=== PATIENT | male | born 1965 | race Native Hawaiian/Other Pacific Islander ===

== ENCOUNTER 2022-05-28 07:40 | Day surgery (SDC) | payer OTHER ==
[~2022-05-28] VITALS: Ht 162.6 cm; Wt 99.1 kg
[~2022-05-28 07:40] MED LIST: AMOXICILLIN500 MG PO; BAYER CHEWABLE81 MG PO; CLONIDINE HCL0.3 MG PO; FENOFIBRATE134 MG PO
--- NOTE | 2022-05-28 10:10 | NUR ---
05/28/22 1010 Dominique Wong 1004: PT ARRIVES TO PACU WITH EYES CLOSED, RESP EVEN AND UNLABORED ON 6 L VIA MASK. PT DOES NOT AROUSE WITH VERBAL OR TACTICE STIMULATION. JUS DIALLO SECOND.
--- NOTE | 2022-05-28 11:08 | NUR ---
1045: PT RETURNS TO UNIT VIA STRETCHER FROM PACU. DROWSY ON ARRIVAL BUT WAKES TO VERBAL STIM AND FOLLOWS COMMANDS. DENIES PAIN AND NAUSEA. VSS, RESP EVEN AND UNLABORED. DRESSING C/D/I. WATER AND CRACKERS PROVIDED. POC DISCUSSED WITH PT AND PT'S FAMILY. NO NEEDS VOICED AT THIS TIME. CALL LIGHT WITHIN REACH
--- NOTE | 2022-05-28 11:21 | NUR ---
1115: CHECKED PATIENT. PATIENT SLEEPING CURRENTLY. DID EAT CRACKERS AND DRINK SOME WATER. NO OTHER NEEDS AT THIS TIME. DAUGHTER AT BEDSIDE. CALL LIGHT WITHIN REACH.
--- NOTE | 2022-05-28 11:56 | NUR ---
1145: PATIENT GOT UP OOB INDEPENDENTLY. GAIT STEADY. WALKING IN HALLWAY WITH DAUGHTER.
--- NOTE | 2022-05-28 12:02 | OR ---
[facility] [address] [place], [place] [address] Signed DATE OF OPERATION: 05/28/2022 SURGEON: Nicci Jones MD PREOPERATIVE DIAGNOSIS: Epidermal inclusion cyst, midback (3-4 cm). POSTOPERATIVE DIAGNOSIS: Epidermal inclusion cyst, midback (3-4 cm). PROCEDURE: Excision of epidermal inclusion cyst, midback. ESTIMATED BLOOD LOSS: None. INDICATIONS: Laura is a 57-year-old gentleman from [facility]. 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 He has been over in the [facility] visiting family. He thinks 10 years ago or maybe more, he developed a small inclusion cyst between his shoulder blades right over the spine. It has continued to increase in size. To his knowledge, it has never been infected. He tells me it drains once in a while. There is only one surgeon in [facility]. The surgeon is very busy and has to deal with more life-threatening issues. Therefore, Laura has been unable to schedule surgery in [facility]. He came to the [facility]gent [facility] at [facility] here in [place], [place]. An ultrasound confirmed the lesion. He was asked to see me as a local general surgeon. His son came with him to the office to help interpret; I explained to Laura this clinically appears to be an epidermal inclusion cyst. It is actually quite large 3 if not 4 cm. The surrounding tissue is also quite indurated. It would be quite to try this in the office. Even today it was difficult in the OR. He understands we have to excise the entire cyst and cyst wall. Otherwise, they come back. There is risk to that surgery including, but not limited to bleeding, infection, scarring, change in contour of the skin as well as recurrent cyst in the same or other locations. He had expressed understanding and wished to proceed. DESCRIPTION OF PROCEDURE: I met with Laura and his and daughter in our preop area. We were able to identify and murphy the lesion quite readily. After this, Laura was taken into our operating room and placed in the left lateral decubitus position under general LMA anesthesia with appropriate padding and monitoring. He was given preoperative Electronically Signed By: NICCI JONES MD 05/28/22 1202 PATIENT NAME: LAURA RAMIREZ OPERATIVE REPORT DATE OF : 61 REPORT #: [id number] PHYSICIAN: NICCI JONES MD PCP: NO PRIMARY CARE PHYSICIAN REPORT IS CONFIDENTIAL AND NOT TO BE RELEASED WITHOUT AUTHORIZATION [facility] [address] [place], [place] [address] Signed antibiotics along with subcutaneous heparin. SCDs were utilized. He was then prepped and draped in the usual sterile fashion. A vertical incision was made over the lesion and carried down around the lesion very slowly and carefully with the help of the cautery. It was unbelievably chronically inflamed and indurated. Several areas of bleeding had to be controlled with the cautery. Eventually, the entire lesion was removed. The cyst wall itself was probably 3 cm but with the indurated tissue it is closer to 4 cm. The wound was irrigated and suctioned out until clear. Local anesthetic was copiously injected into his wound. We closed the dermis with interrupted 3-0 subcuticular Monocryl sutures. The skin edges were reapproximated with a running 5-0 fast absorbing plain gut suture. Dry gauze and tape were then applied. Laura was then rotated into the supine position onto his hospital bed and taken into recovery room in stable condition. Nicci Jones MD ALB/MODL /[id number] cc: Nicci Jones MD [address] [facility] Copies: NICCI JONES MD ~ Electronically Signed By: NICCI JONES MD 05/28/22 1202 PATIENT NAME: LAURA RAMIREZ OPERATIVE REPORT DATE OF : 61 REPORT #: [id number] PHYSICIAN: NICCI JONES MD PCP: NO PRIMARY CARE PHYSICIAN REPORT IS CONFIDENTIAL AND NOT TO BE RELEASED WITHOUT AUTHORIZATION
--- NOTE | 2022-05-28 13:03 | NUR ---
1200: PATIENT DRESSED WITH HELP FROM FAMILY. VS CHECKED. BACK DRESSING CDI. IV SITE WNL. DISCHARGE INSTRUCTIONS GIVEN TO PATIENT AND FAMILY. 1215: IV DC'D WNL. TIP INTACT. DRESSING APPLIED. PATIENT DISCHARGED TO HOME VIA WHEELCHAIR WITH FAMILY.
--- NOTE | 2022-05-29 13:19 | PATH ---
[facility] [address] [facility] [place], [place] [address] Signed SPECIMEN(S): A MID BACK CYST SPECIMEN SOURCE: A. MID BACK CYST CLINICAL HISTORY: Epidermal inclusion cyst excision. FINAL PATHOLOGIC DIAGNOSIS: Designated "epidermoid inclusion cyst, mid back, excision: - Epidermoid inclusion cyst with evidence of prior rupture. NAL:cml:C2NR MICROSCOPIC EXAMINATION: Histologic sections of all submitted blocks are examined by light microscopy. These findings, together with the gross examination, support the pathologic diagnosis. Sections demonstrate fragments of an epidermoid inclusion cyst and surrounding fibroadipose tissue with granulation tissue formation, exuberant acute and chronic inflammation, foreign body type giant cell reaction, and flecks of keratin. These findings are compatible with prior rupture of the epidermoid inclusion cyst. NAL:cml GROSS DESCRIPTION: The specimen, labeled "AT, A," and designated on the requisition "mid back epidermal inclusion cyst," is received in formalin and consists of a disrupted cyst with yellow to red-brown soft tissue (5.3 x 4.0 x 3.0 cm). The specimen is inked blue and serially sectioned to reveal a brown-scanlon, friable material within the cyst, and yellow-scanlon to hemorrhagic cut surface the soft tissue. Tray Line Worker sections are submitted in cassettes (A1-A2). AC (under the direct supervision of a pathologist) The Gross Description was prepared using a voice recognition system. The report was reviewed for accuracy; however, sound-alike word errors, addition and/or deletions may occur. If there is any question about this report, please contact Client Services. PERFORMING LABORATORY: The technical component was performed by [facility], [address] [place] [id number] (CLIA# [id number]). Professional interpretation was PATIENT NAME: GENET RAMIREZ PATHOLOGY DATE OF : 61 REPORT #: [id number] PHYSICIAN: ARMEN PATHOLOGY PCP: NO PRIMARY CARE PHYSICIAN REPORT IS CONFIDENTIAL AND NOT TO BE RELEASED WITHOUT AUTHORIZATION [facility] [address] [place], [place] [address] Signed performed by [employer] [facility], [address] [address] (CLIA# [id number]). Diagnostician: Jackie Akins MD Pathologist Electronically Signed 05/29/2022 Copies: ~ PATIENT NAME: GENET RAMIREZ PATHOLOGY DATE OF : 61 REPORT #: [id number] PHYSICIAN: [facility] PATHOLOGY PCP: NO PRIMARY CARE PHYSICIAN REPORT IS CONFIDENTIAL AND NOT TO BE RELEASED WITHOUT AUTHORIZATION
== END 2022-05-28 12:15 | disposition home or self-care (01) ==
LOC: DS 07:40
PROVIDERS: ATTEND Colon & Rectal Surgery
PROC: 0HB6XZZ Excision of Back Skin, External Approach (ICD-10-PCS; principal; 2022-05-28 09:00)
DX: L72.0 Epidermal cyst (principal); I10 Essential (primary) hypertension
CPT/HCPCS: J0690; J1644; J2001; J2250; J2704; J3010; J7121